=== PATIENT | female | born 1990 | race Caucasian/White ===

== ENCOUNTER 2016-07-29 05:28 | Inpatient (IN) | payer BC ==
[2016-07-29] MEDS ORDERED: Butorphanol 1 MG/ML SDV IVPUSH PRN (05:52)
[2016-07-29] MEDS ORDERED: Water For Irrigation,Sterile 1,000 ML Container IRR PRN (05:52)
[2016-07-29] MEDS ORDERED: Nalbuphine 10 MG/1 ML Vial IVPUSH PRN (05:52)
[2016-07-29] MEDS ORDERED: Carboprost Tromethamine 250 MCG/1 ML Amp IM PRN (05:52)
[2016-07-29] MEDS ORDERED: Sodium Chloride 0.9% 2.5 ML Syringe FLUSH PRN (05:52)
[2016-07-29] MEDS ORDERED: Methylergonovine 0.2 MG/1 ML Amp IM PRN ×2 (05:52→10:35)
[2016-07-29] MEDS ORDERED: Misoprostol 200 MCG Tab PO PRN (05:52)
[2016-07-29] MEDS ORDERED: Sodium Chloride 0.9% 10 ML Syringe FLUSH PRN (05:52)
[2016-07-29] MEDS ORDERED: Lidocaine 1% 50 ML MDV INJECT PRN (05:52)
[2016-07-29] MEDS ORDERED: Oxytocin/Lactated Ringers 30 UNIT/500 ML BAG IV SCH ×2 (06:00→08:45)
[2016-07-29] MEDS: Lactated Ringers 1,000 ML IV SCH ×2 (06:45→07:58)
[2016-07-29] MEDS ORDERED: Ropivacaine 0.2% 2 MG/ML 20 ML SDV ONE (07:06)
--- NOTE | 2016-07-29 07:45 | PCM.PREANE ---
Preanesthetic Assessment - Anesthesia/Transfusion/Family Hx Anesthesia History: Prior Anesthesia Without Reaction Family History of Anesthesia Reaction: No - Review of Systems Other: Reports: None - Physical Assessment Height: 5 ft 5 in Weight: 77.111 kg ASA Class: 2 Mental Status: Alert & Oriented x3 Airway Class: Mallampati = 1 Dentition: Reports: Normal Dentition Thyro-Mental Finger Breadths: 3 Mouth Opening Finger Breadths: 3 ROM/Head Extension: Full - Lab Values: Laboratory Last Values WBC 9.96 K/uL (4.0-11.0) 07/29/16 06:09 RBC 4.32 M/uL (4.30-5.90) 07/29/16 06:09 Hgb 12.0 g/dL (12.0-16.0) 07/29/16 06:09 Hct 35.7 % (36.0-46.0) L 07/29/16 06:09 MCV 82.6 fL (80.0-98.0) 07/29/16 06:09 MCH 27.8 pg (27.0-32.0) 07/29/16 06:09 MCHC 33.6 g/dL (31.0-37.0) 07/29/16 06:09 RDW Std Deviation 41.2 fl (28.0-62.0) 07/29/16 06:09 RDW Coeff of Linh 14 % (11.0-15.0) 07/29/16 06:09 Plt Count 170 K/uL (150-400) 07/29/16 06:09 MPV 11.50 fL (7.40-12.00) 07/29/16 06:09 Nucleated RBC % 0.0 /100WBC 07/29/16 06:09 Nucleated RBCs # 0 K/uL 07/29/16 06:09 Blood Type A NEGATIVE 07/29/16 06:09 Antibody Screen NEGATIVE 07/29/16 06:09 - Allergies Allergies/Adverse Reactions: Allergies Allergy/AdvReac Type Severity Reaction Status Date / Time No Known Allergies Allergy Verified 07/05/14 21:19 - Blood Blood Available: Yes Product(s) Available: PRBC - Acknowledgements Anesthesia Type Planned: Epidural Pt an Appropriate Candidate for the Planned Anesthesia: Yes Alternatives and Risks of Anesthesia Discussed w Pt/Guardian: Yes Pt/Guardian Understands and Agrees with Anesthesia Plan: Yes PreAnesthesia Questionnaire Respiratory History: Reports: Asthma Gastrointestinal History: Reports: GERD SPINNING DOFFER History: Reports: Other OB/BYN History: x 2; presently 27 weeks Psychiatric History: Reports: Anxiety - Past Surgical History HEENT Surgical History: Reports: Tonsillectomy, Other (See Below) Other HEENT Surgeries/Procedures: Eardrum repair. adenoidectomy Musculoskeletal Surgical History: Reports: Other (See Below) Other Musculoskeletal Surgeries/Procedures:: Cyst removal x2 on bilateral wrist - SUBSTANCE USE Smoking Status *Q: Never Smoker Recreational Drug Use History: No - HOME MEDS Home Medications: Home Meds Escitalopram [Lexapro] 10 mg PO DAILY #30 tablet 10/01/14 [Rx] - CURRENT (IN HOUSE) MEDS Current Meds: Current Medications Butorphanol Tartrate (Stadol) 1 mg IVPUSH Q1H PRN PRN Reason: Pain Carboprost Tromethamine (Hemabate Ds) 250 mcg IM ASDIRECTED PRN PRN Reason: Post Hemorrhage Lactated Ringer's (Ringers, Lactated) 1,000 mls @ 150 mls/hr IV ASDIRECTED MAXIMINO Lidocaine HCl (Xylocaine 1%) 50 ml INJECT .ONCE PRN PRN Reason: Laceration repair Methylergonovine Maleate (Methergine) 0.2 mg IM ASDIRECTED PRN PRN Reason: Post Hemorrhage Misoprostol (Cytotec) 200 mcg PO .ONCE PRN PRN Reason: Post Hemorrhage Nalbuphine HCl (Nubain) 10 mg IVPUSH Q1H PRN PRN Reason: Pain (severe 7-10) Stop: 07/29/16 07:53 Sodium Chloride (Saline Flush) 10 ml FLUSH ASDIRECTED PRN PRN Reason: Keep Vein Open Sodium Chloride (Saline Flush) 2.5 ml FLUSH ASDIRECTED PRN PRN Reason: Keep Vein Open Sterile Water (Sterile Water For Irrigation) 1,000 ml IRR ASDIRECTED PRN PRN Reason: delivery Discontinued Medications Oxytocin/Lactated Ringer's (Pitocin In Lr 30 Units/500 Ml) 30 unit in 500 mls @ 999 mls/hr IV TITRATE MAXIMINO; 999 MUNITS/MIN PRN Reason: Protocol Stop: 07/29/16 06:31 Ropivacaine/Fentanyl/NS (Fentanyl 2 Mcg-Ropiv 0.2%-Ns) Confirm Administered Dose 100 mls @ as directed .ROUTE .ST-MED ONE Stop: 07/29/16 07:07 Ropivacaine (Naropin 0.2%) Confirm Administered Dose 20 ml .ROUTE .ST-MED ONE Stop: 07/29/16 07:07
[2016-07-29] MEDS ORDERED: Lanolin 100% Cream 7 GM Tube TOP PRN (10:35)
[2016-07-29] MEDS ORDERED: Benzocaine/Menthol 20%-0.5% Spray 78 GM Cannister TOP PRN (10:35)
[2016-07-29] MEDS ORDERED: oxyCODONE 5 MG Tab PO PRN (10:35)
[2016-07-29] MEDS ORDERED: Witch Hazel Medicated Pads 40/Jar TOP PRN (10:35)
[2016-07-29] MEDS ORDERED: Acetaminophen 500 MG Tab PO PRN (10:35)
[2016-07-29] MEDS ORDERED: Bisacodyl 10 MG Supp RECTAL PRN (10:35)
[2016-07-29] MEDS ORDERED: Docusate Sodium 100 MG Cap PO PRN (10:35)
[2016-07-29] MEDS ORDERED: Escitalopram 10 MG Tab PO SCH (10:45)
[2016-07-29] MEDS: Escitalopram 10 MG Tab PO SCH (11:19)
[2016-07-29] MEDS: Ibuprofen 800 MG Tab PO PRN ×2 (11:19→16:41)
--- NOTE | 2016-07-29 12:36 | OR ---
SURGEON: Elizabeth Kenney M.D. DATE OF PROCEDURE: 07/29/2016 PREOPERATIVE DIAGNOSIS: A 38 and 6/7th week intrauterine , active spontaneous labor. POSTOPERATIVE DIAGNOSIS: A 38 and 6/7th week intrauterine , active spontaneous labor. PROCEDURE: Term spontaneous vaginal delivery with Pitocin augmentation. ANESTHESIA: Epidural. ESTIMATED BLOOD LOSS: Less than 200 mL. FINDINGS: Liveborn female, score 8 and 8. Weight is pending at the time of dictation. Placenta was spontaneous Schultze intact with 3 vessels. Upon inspection of the pelvis and perineum, there were no periurethral, vaginal sidewall, cervical, rectal, or perineal lacerations. EBL was again less than 200 mL. BRIEF HISTORY: This is a 26-year-old female. She is G5, P2-0-2-2. She presents at 38 and 6/7th weeks' gestation with regular contractions, initially 5 cm upon admission. Category 1 heart tones. She received an epidural for pain control. She had artificial rupture of membranes following the epidural with no further cervical cover marker the following hours. Therefore, Pitocin was initiated and she progressed to complete. DESCRIPTION OF PROCEDURE: With the patient in the dorsal lithotomy position, the patient pushed over a 10- minute time period to a 5+ station, at which time the head was delivered spontaneously and atraumatically over the perineum with support with subsequent delivery of the infant's shoulders and body without any difficulty. The was bulb suctioned by nose and mouth and the infant was handed to the mother in the presence of the nurse attending delivery. The infant is a liveborn female, score 8 and 8. After the cord had ceased to pulsate, it was doubly clamped and cut. Cord blood was collected for cord ABGs as well as routine cord blood sampling. Pitocin was initiated after delivery of the to assist with the delivery of the placenta, which was delivered spontaneously. Schultze intact with 3 vessels. Upon inspection of the pelvis and perineum, there were no periurethral, vaginal sidewall, cervical, rectal, or perineal lacerations. EBL was less than 200 mL. There were no known complications. Mother and baby remained in LDRP in good condition. SIMI / LIV /[id number]
--- NOTE | 2016-07-29 13:16 | PCM48HPAN ---
Post Anesthesia Note - EVALUATION WITHIN 48HRS OF ANESTHETIC Vital Signs in Normal Range: Yes Patient Participated in Evaluation: Yes Respiratory Function Stable: Yes Airway Patent: Yes Cardiovascular Function Stable: Yes Hydration Status Stable: Yes Pain Control Satisfactory: Yes Nausea and Vomiting Control Satisfactory: Yes Mental Status Recovered: Yes
[2016-07-30] MEDS: Ibuprofen 800 MG Tab PO PRN (06:32)
[2016-07-30] MEDS: Escitalopram 10 MG Tab PO SCH (09:16)
--- NOTE | 2016-07-30 09:42 | PCM.PNPP ---
- General Info Date of Service: 07/30/16 Functional Status: Reports: pain controlled, tolerating diet, ambulating, urinating (mood is doing well on Lexapro) - Review of Systems General: Reports: No Symptoms HEENT: Reports: no symptoms Pulmonary: Reports: no symptoms Cardiovascular: Reports: No Symptoms Gastrointestinal: Reports: No symptoms Genitourinary: Reports: no symptoms Musculoskeletal: Reports: no symptoms Skin: Reports: no symptoms Neurological: Reports: No Symptoms Psychiatric: Reports: no symptoms - Patient Data Vital Signs - most recent: Last Vital Signs Temp 36.8 C 07/30/16 08:20 Pulse 71 07/30/16 08:20 Resp 16 07/30/16 08:20 BP 109/73 07/30/16 08:20 Pulse Ox 98 07/30/16 08:20 Weight - most recent: 77.111 kg Lab Results - last 24 hrs: Laboratory Results - last 24 hr 07/29/16 07/30/16 Range/Units 11:52 06:05 Hgb 10.9 L (12.0-16.0) g/dL Hct 33.0 L (36.0-46.0) % Screen NEGATIVE RhIG Candidate? YES Rhogam Indicated YES, BABY RH POS H Med Orders - Current: Current Medications Acetaminophen (Tylenol Extra Strength) 1,000 mg PO Q4H PRN PRN Reason: Pain Last Admin: 07/29/16 19:41 Dose: 1,000 mg Benzocaine/Menthol (Dermoplast Pain Relief 20%-0.5% Hannibal) 78 gm TOP ASDIRECTED PRN PRN Reason: Perineal Comfort Measure Bisacodyl (Dulcolax) 10 mg RECTAL .ONCE PRN PRN Reason: Constipation Docusate Sodium (Colace) 100 mg PO BID PRN PRN Reason: Constipation Last Admin: 07/29/16 11:12 Dose: 100 mg Emollient Ointment (Lansinoh Hpa) 0 gm TOP ASDIRECTED PRN PRN Reason: Sore Nipples Escitalopram Oxalate (Lexapro) 20 mg PO DAILY MAXIMINO Last Admin: 07/30/16 09:16 Dose: 20 mg Ibuprofen (Motrin) 800 mg PO Q6H PRN PRN Reason: Pain Last Admin: 07/30/16 06:32 Dose: 800 mg Measles/Mumps/Rubella Vaccine Live (M-M-R Ii Vaccine) 0.5 ml SUBCUT .ONCE ONE Stop: 07/30/16 10:56 Methylergonovine Maleate (Methergine) 0.2 mg IM .ONCE PRN PRN Reason: Excessive Vaginal Bleeding Oxycodone HCl (Oxycodone) 5 mg PO Q2H PRN PRN Reason: Pain Last Admin: 07/29/16 22:47 Dose: 5 mg Witch Mckenzie (Tucks) 1 pad TOP ASDIRECTED PRN PRN Reason: comfort care Discontinued Medications Butorphanol Tartrate (Stadol) 1 mg IVPUSH Q1H PRN PRN Reason: Pain Carboprost Tromethamine (Hemabate Ds) 250 mcg IM ASDIRECTED PRN PRN Reason: Post Hemorrhage Escitalopram Oxalate (Lexapro) 10 mg PO DAILY MAXIMINO Lactated Ringer's (Ringers, Lactated) 1,000 mls @ 150 mls/hr IV ASDIRECTED MAXIMINO Last Infusion: 07/29/16 10:55 Dose: 0 mls/hr Oxytocin/Lactated Ringer's (Pitocin In Lr 30 Units/500 Ml) 30 unit in 500 mls @ 999 mls/hr IV TITRATE MAXIMINO; 999 MUNITS/MIN PRN Reason: Protocol Stop: 07/29/16 06:31 Ropivacaine/Fentanyl/NS (Fentanyl 2 Mcg-Ropiv 0.2%-Ns) Confirm Administered Dose 100 mls @ as directed .ROUTE .K-MED ONE Stop: 07/29/16 07:07 Oxytocin/Lactated Ringer's (Pitocin In Lr 30 Units/500 Ml) 30 unit in 500 mls @ 2 mls/hr IV TITRATE MAXIMINO; 2 MUNITS/MIN PRN Reason: Protocol Last Titration: 07/29/16 10:57 Dose: Infused Lidocaine HCl (Xylocaine 1%) 50 ml INJECT .ONCE PRN PRN Reason: Laceration repair Methylergonovine Maleate (Methergine) 0.2 mg IM ASDIRECTED PRN PRN Reason: Post Hemorrhage Misoprostol (Cytotec) 200 mcg PO .ONCE PRN PRN Reason: Post Hemorrhage Nalbuphine HCl (Nubain) 10 mg IVPUSH Q1H PRN PRN Reason: Pain (severe 7-10) Stop: 07/29/16 07:53 Ropivacaine (Naropin 0.2%) Confirm Administered Dose 20 ml .ROUTE .STK-MED ONE Stop: 07/29/16 07:07 Sodium Chloride (Saline Flush) 10 ml FLUSH ASDIRECTED PRN PRN Reason: Keep Vein Open Sodium Chloride (Saline Flush) 2.5 ml FLUSH ASDIRECTED PRN PRN Reason: Keep Vein Open Sterile Water (Sterile Water For Irrigation) 1,000 ml IRR ASDIRECTED PRN PRN Reason: delivery Last Admin: 07/29/16 10:55 Dose: 1,000 ml - Interaction Disposition, : [facility] to Nursery Feeding: Breastfed ; Nursed Well Support Person: - Recovery Exam Fundal Tone: Firm Fundal Level: 1 Fingerbreadths Below Umbilicus Fundal Placement: Midline Lochia Amount: Scant Lochia Color: Rubra/Red Perineum Description: Intact, Minimal Bruising/Swelling Episiotomy/Laceration: None Bladder Status: Voiding Urinary Elimination: Voided - Exam General: alert, oriented HEENT: Pupils equal Neck: supple Lungs: Normal respiratory effort Abdomen: soft, no tenderness, no distension Extremities: no edema Skin: warm, dry, intact Neurological: no new focal deficit Psy/Mental Status: alert, normal affect, normal mood - Problem List & Annotations (1) Vaginal delivery SNOMED Code(s): 484308568 Code(s): O80 - ENCOUNTER FOR FULL-TERM UNCOMPLICATED DELIVERY Status: Acute Current Visit: No - Problem List Review Problem List Initiated/Reviewed/Updated: Yes - My Orders Last 24 Hours: My Active Orders 07/29/16 10:35 Patient Status [ADT] Routine May Shower [RC] ASDIRECTED Up ad Emily [RC] ASDIRECTED Vital Signs [RC] PER UNIT ROUTINE Acetaminophen [Tylenol Extra Strength] 1,000 mg PO Q4H PRN Benzocaine/Menthol [Dermoplast Pain Relief 20%-0.5% Hannibal] 78 gm TOP ASDIRECTED PRN Bisacodyl [Dulcolax] 10 mg RECTAL .ONCE PRN Docusate Sodium [Colace] 100 mg PO BID PRN Ibuprofen [Motrin] 800 mg PO Q6H PRN Lanolin [Lansinoh HPA] See Dose Instructions TOP ASDIRECTED PRN Methylergonovine [Methergine] 0.2 mg IM .ONCE PRN Gabby Mckenzie [Tucks] 1 pad TOP ASDIRECTED PRN oxyCODONE 5 mg PO Q2H PRN Assess Lochia [WOMSER] Per Unit Routine Assess Uterine Involution [WOMSER] Per Unit Routine Perineal Care [OM.PC] Per Unit Routine Peripheral IV Discontinue [OM.PC] Routine Resuscitation Status Routine 07/29/16 10:45 Escitalopram [Lexapro] 20 mg PO DAILY 07/29/16 10:56 Vaccines to be Administered [RC] PER UNIT ROUTINE 07/29/16 11:52 SCREEN [BBK] Routine RH IMMUNE GLOBULIN [BBK] Routine RHIG WORKUP, [BBK] Routine 07/29/16 Lunch Regular Diet [DIET] 07/30/16 10:55 Measles, Mumps & Rubella [M-M-R II Vaccine] 0.5 ml SUBCUT .ONCE ONE - Assessment Assessment:: PPD#1 after , stable, minimal lochia, minimal pain, has some cramping after and would like a few oxycodone for htis. - Plan Plan:: Dismiss to home, follow up in 6 weeks discharge precautions given. She will need to get MMR at the health unit any time after two weeks from now, as she is receiving rhogam at this time.
[2016-07-30] MEDS ORDERED: Measles, Mumps & Rubella Vaccine 0.5 ML SDV SUBCUT ONE (10:55)
== END 2016-07-30 12:30 | disposition home or self-care (01) | DRG 560 ==
LOC: MW.OB 05:28 → UNDOADMOB 05:28 → OBSVTOIN 10:20 → MERGE 10:20 → MW.OB 10:20
PROVIDERS: ADMIT Obstetrics & Gynecology; ATTEND Obstetrics & Gynecology
PROC: 10E0XZZ Delivery of Products of Conception, External Approach (ICD-10-PCS; principal; 2016-07-29)
DX: O99.344 Other mental disorders complicating childbirth (principal); F41.8 Other specified anxiety disorders; Z3A.38 38 weeks gestation of pregnancy; Z37.0 Single live birth
CPT/HCPCS: 01967; 36415; 59025; 85014; 85018; 85027; 85460; 86850; 86900; 86901; A9270-GY; J2790; J2795; J7120

== ENCOUNTER 2019-02-07 11:07 | Emergency (ER) | payer BC ==
--- NOTE | 2019-02-07 11:36 | EDM.PDOC ---
ED HPI GENERAL MEDICAL PROBLEM - General Chief Complaint: Respiratory Problem Stated Complaint: COUGH Time Seen by Provider: 02/07/19 11:33 Source of Information: Reports: Patient History Limitations: Reports: No Limitations - History of Present Illness INITIAL COMMENTS - FREE TEXT/NARRATIVE: Patient is a 29-year-old female who is complaining of having flulike symptoms which started approximately 4 days ago. Patient was having body aches and fever and chills. She is complaining of a cough which is nonproductive and is getting worse. She has no dyspnea with exertion. She is complaining of both fever and chills. She is not nauseous has had no vomiting or diarrhea. She denies any dysuria or hematuria. Patient has not been taking any Tylenol or Motrin for symptoms. She denies having any headache but is complaining of having a sore throat. Duration: Day(s): (4) Quality: Reports: Ache Severity: Moderate Improves with: Reports: None Worsens with: Reports: None Associated Symptoms: Reports: Cough, Fever/Chills. Denies: cough w sputum, Headaches, Nausea/Vomiting, Rash, Shortness of Breath generalized Pain Score (Numeric/FACES): 7 - Related Data Allergies Allergy/AdvReac Type Severity Reaction Status Date / Time No Known Allergies Allergy Verified 02/07/19 11:21 Home Meds: Home Meds ARIPiprazole [Aripiprazole] 1 tab PO DAILY 02/07/19 [History] Past Medical History Respiratory History: Reports: Asthma Gastrointestinal History: Reports: GERD COTTON PULLER History: Reports: Other COTTON PULLER History: x 2; Psychiatric History: Reports: Anxiety - Infectious Disease History Infectious Disease History: Reports: None - Past Surgical History HEENT Surgical History: Reports: Adenoidectomy, Naso-Sinus Surgery, Tonsillectomy, Other (See Below) Other HEENT Surgeries/Procedures: Ear surgeries in the past Musculoskeletal Surgical History: Reports: Other (See Below) Other Musculoskeletal Surgeries/Procedures:: Cyst removal x2 on bilateral wrist Social & Family History - Family History Family Medical History: Noncontributory Cardiac: Reports: Prior Cardiac Arrest OBGYN: Reports: Endocrine/Metabolic: Reports: Other (See Below) Other Endocrine/Metabolic Family History: Thyroid disease Oncologic: Reports: Lung - Tobacco Use Smoking Status *Q: Never Smoker - Caffeine Use Caffeine Use: Reports: None - Recreational Drug Use Recreational Drug Use: No ED ROS GENERAL - Review of Systems Review Of Systems: Comprehensive ROS is negative, except as noted in HPI. ED EXAM, GENERAL - Physical Exam Exam: See Below Free Text/Narrative:: Exam: See Below Exam Limited By: No Limitations Head: Atraumatic Neck: Normal Inspection. No: Carotid Bruit, Lymphadenopathy (R) Respiratory/Chest: No Respiratory Distress, Lungs Clear, Normal Breath Sounds, No Accessory Muscle Use. No: Chest Non-Tender Cardiovascular: Normal Peripheral Pulses, Regular Rate, Rhythm, No Edema, No JVD GI/Abdominal: Normal Bowel Sounds, Tender. No: Non-Tender, Splenomegaly Back Exam: Normal Inspection. No: CVA Tenderness (R) Extremities: Normal Inspection. No: No Pedal Edema Neurological: Alert, Oriented, Normal Cognition Psychiatric: Normal Affect Skin Exam: Warm Lymphatic: No Adenopathy Course - Vital Signs Last Recorded V/S: Last Vital Signs Temp 36.8 C 02/07/19 11:18 Pulse 104 H 02/07/19 11:18 Resp 20 02/07/19 11:18 BP 123/72 02/07/19 11:18 Pulse Ox 98 02/07/19 11:18 - Orders/Labs/Meds Meds: Medications Discontinued Medications Generic Name Dose Route Start Last Admin Trade Name Jessy PRN Reason Stop Dose Admin Ibuprofen 600 mg 02/07/19 11:41 02/07/19 11:47 Motrin PO 02/07/19 11:42 600 mg ONETIME ONE Administration Ibuprofen Confirm 02/07/19 11:49 Motrin Administered 02/07/19 11:50 Dose 600 mg .ROUTE .STK-MED ONE - Re-Assessments/Exams Free Text/Narrative Re-Assessment/Exam: 02/07/19 12:23 Patient is positive for influenza B. I will give her a prescription for some Robitussin-AC secondary to her cough. Recommended she increase her fluids and take Tylenol/ibuprofen as needed. She may return to ER if her symptoms worsen. Departure - Departure Time of Disposition: 12:26 Disposition: Home, Self-Care 01 Condition: Good Clinical Impression: Influenza B, Influenza - Discharge Information Instructions: Influenza, Adult Referrals: PCP,None [Primary Care Provider] - Forms: ED Department Discharge Additional Instructions: Increase rest and fluids. Ibuprofen and Tylenol as needed. Robitussin-AC if needed. Return to ER if worse. Follow-up with PCP if not improving. The following information is given to patients seen in the emergency department who are being discharged to home. This information is to outline your options for follow-up care. We provide all patients seen in our emergency department with a follow-up referral. The need for follow-up, as well as the timing and circumstances, are variable depending upon the specifics of your emergency department visit. If you don't have a primary care physician on staff, we will provide you with a referral. We always advise you to contact your personal physician following an emergency department visit to inform them of the circumstance of the visit and for follow-up with them and/or the need for any referrals to a consulting specialist. The emergency department will also refer you to a specialist when appropriate. This referral assures that you have the opportunity for follow-up care with a specialist. All of these measure are taken in an effort to provide you with optimal care, which includes your follow-up. Under all circumstances we always encourage you to contact your private physician who remains a resource for coordinating your care. When calling for follow-up care, please make the office aware that this follow-up is from your recent emergency room visit. If for any reason you are refused follow-up, please contact the [facility] Emergency Department at and asked to speak to the emergency department charge nurse. Sepsis Event Note - Evaluation Sepsis Screening Result: No Definite Risk - Focused Exam Vital Signs: Vital Signs Temp Pulse Resp BP Pulse Ox 02/07/19 11:18 36.8 C 104 H 20 123/72 98 Date Exam was Performed: 02/07/19 Time Exam was Performed: 12:23
[2019-02-07] MEDS ORDERED: Ibuprofen 600 MG Tab PO ONE (11:41)
[2019-02-07] MEDS ORDERED: Ibuprofen 600 MG Tab ONE (11:49)
== END 2019-02-07 12:38 | disposition home or self-care (01) ==
LOC: MW.ED 11:07
DX: J10.1 Influenza due to other identified influenza virus with other respiratory manifestations (principal); F41.9 Anxiety disorder, unspecified; Z79.899 Other long term (current) drug therapy
CPT/HCPCS: 87804; 99283; A9270; 99282

== ENCOUNTER 2021-02-07 15:56 | Emergency (ER) | payer BC ==
[2021-02-07 19:28] LABS: BLOOD UREA NITROGEN,BUN 8 mg/dL (7.0-18.0); CARBON DIOXIDE,CO2 24.9 mmol/L (21.0-32.0); CHLORIDE,CL 104 mmol/L (98-107); GLUCOSE RANDOM 87 mg/dL (74-106); LIPASE 114 U/L (73-393); POTASSIUM,K 3.4 mmol/L (3.5-5.1); SODIUM,NA 141 mmol/L (136-145)
--- NOTE | 2021-02-07 21:11 | EDM.PDOC ---
ED HPI GENERAL MEDICAL PROBLEM - General Chief Complaint: Gastrointestinal Problem Stated Complaint: BLOOD IN STOOL Time Seen by Provider: 02/07/21 18:24 Source of Information: Reports: Patient History Limitations: Reports: No Limitations - History of Present Illness INITIAL COMMENTS - FREE TEXT/NARRATIVE: HISTORY AND PHYSICAL: History of present illness: Patient is a 31-year-old female who presents emergency room today with concern of a few episodes of bright red blood in her stool today. Patient states that she has never had this occur before and she has had 3 bowel movements this afternoon, the most recent being at 3 PM and states that there was bright red blood in her stool. Patient states that the toilet bowl was also filled with blood and she was concerned because she felt like this was a large amount. She states that she is not having any associated rectal pain or abdominal pain denies any other health history. Patient denies fever, chills, chest pain, shortness of breath, or cough. Denies headache, neck stiff ness, change in vision, syncope, or near syncope. Denies nausea, vomiting, abdominal pain, diarrhea, constipation, or dysuria. Has not noted any blood in urine. Patient has been eating and drinking appropriately. Review of systems: As per history of present illness and below otherwise all systems reviewed and negative. Past medical history: As per history of present illness and as reviewed below otherwise noncontributory. Surgical history: As per history of present illness and as reviewed below otherwise noncontributory. Social history: See social history for further information Family history: As per history of present illness and as reviewed below otherwise noncontributory. Physical exam: General: Patient is alert, oriented, and in no acute distress. Patient sitting comfortably on exam table. Vitals stable and reviewed by me. HEENT: Atraumatic, normocephalic, pupils equal and reactive bilaterally, negative for conjunctival pallor or scleral icterus, mucous membranes moist, throat clear, neck supple, nontender, trachea midline. No drooling or trismus noted. No meningeal signs. No hot potato voice noted. Lungs: Clear to auscultation, breath sounds equal bilaterally, chest nontender. Heart: S1S2, regular rate and rhythm without overt murmur Abdomen: Soft, nondistended, nontender. Negative for masses or hepatos plenomegaly. Negative for costovertebral tenderness. Pelvis: Stable nontender. Genitourinary: Deferred. Rectal: Rectal exam performed by PA kenan Whitten and observed and supervised directly by me. Rectal tone intact. No cruz blood / melena. Hemoccult negative. No obvious fissures, masses, lesions, or hemorrhoids noted. Skin: Intact, warm, dry. No lesions or rashes noted. Extremities: Atraumatic, negative for cords or calf pain. Neurovascular unremarkable. Neuro: Awake, alert, oriented. Cranial nerves II through XII unremarkable. Cerebellum unremarkable. Motor and sensory unremarkable throughout. Exam nonfocal. Medical Decision Making: CBC mild derangements unremarkable. Specifically hemoglobin and hematocrit within normal limits. CMP does show mild poke kalemia with potassium at 3.4. Urinalysis clear. hCG negative. Repeat H&H remained stable. Guaiac negative. Strict return precautions thoroughly discussed with patient. Discussed importance for follow-up with her primary care provider and for colonoscopy consideration. Voices understanding and is agreeable to plan of care. Denies any further questions or concerns at this time. Diagnostics: CBC, CMP, lipase, urinalysis, hCG, repeat H&H Therapeutics: None Prescription: None Impression: History of blood in stool Plan: 1. Follow-up with your primary care provider for further colonoscopy consideration as discussed. Return to the ED as needed and as discussed. Definitive disposition and diagnosis as appropriate pending reevaluation and review of above. 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; Psychiatric History: Reports: Anxiety - Infectious Disease History Infectious Disease History: Reports: None - Past Surgical History HEENT Surgical History: Reports: Adenoidectomy, Naso-Sinus Surgery, Tonsillectom y, Other (See Below) Other HEENT Surgeries/Procedures: Ear surgeries in the past Musculoskeletal Surgical History: Reports: Other (See Below) Other Musculoskeletal Surgeries/Procedures:: Cyst removal x2 on bilateral wrist Social & Family History - Family History Family Medical History: No Pertinent Family History Cardiac: Reports: Prior Cardiac Arrest OBGYN: Reports: Endocrine/Metabolic: Reports: Other (See Below) Other Endocrine/Metabolic Family History: Thyroid disease Oncologic: Reports: Lung - Caffeine Use Caffeine Use: Reports: Energy Drinks - Recreational Drug Use Recreational Drug Use: No ED ROS GENERAL - Review of Systems Review Of Systems: Comprehensive ROS is negative, except as noted in HPI. ED EXAM, GENERAL - Physical Exam Exam: See Below (See dictation) Course - Vital Signs Last Recorded V/S: Last Vital Signs Temp 98.2 F 02/07/21 21:20 Pulse 67 02/07/21 21:20 Resp 18 02/07/21 21:20 BP 120/67 02/07/21 21:20 Pulse Ox 98 02/07/21 21:20 - Orders/Labs/Meds Labs: Laboratory Tests 02/07/21 02/07/21 02/07/21 Range/Units 16:21 16:21 18:50 WBC 9.92 (4.0-11.0) K/uL RBC 4.57 (4.30-5.90) M/uL Hgb 13.0 (12.0-16.0) g/dL Hct 37.2 (36.0-46.0) % MCV 81.4 (80.0-98.0) fL MCH 28.4 (27.0-32.0) pg MCHC 34.9 (31.0-37.0) g/dL RDW Std Deviation 39.2 (28.0-62.0) fl RDW Coeff of Linh 13 (11.0-15.0) % Plt Count 250 (150-400) K/uL MPV 10.70 (7.40-12.00) fL Neut % (Auto) 56.8 (48.0-80.0) % Lymph % (Auto) 36.3 (16.0-40.0) % Blair % (Auto) 4.1 (0.0-15.0) % Eos % (Auto) 2.7 (0.0-7.0) % Baso % (Auto) 0.1 (0.0-1.5) % Neut # (Auto) 5.6 (1.4-5.7) K/uL Lymph # (Auto) 3.6 H (0.6-2.4) K/uL Blair # (Auto) 0.4 (0.0-0.8) K/uL Eos # (Auto) 0.3 (0.0-0.7) K/uL Baso # (Auto) 0.0 (0.0-0.1) K/uL Nucleated RBC % 0.0 /100WBC Nucleated RBCs # 0 K/uL Sodium (136-145) mmol/L Potassium (3.5-5.1) mmol/L Chloride (98-107) mmol/L Carbon Dioxide (21.0-32.0) mmol/L BUN (7.0-18.0) mg/dL Creatinine (0.6-1.0) mg/dL Est Cr Clr Drug Dosing mL/min Estimated GFR (MDRD) ml/min Glucose (74-106) mg/dL Calcium (8.5-10.1) mg/dL Total Bilirubin (0.2-1.0) mg/dL AST (15-37) IU/L ALT (14-63) IU/L Alkaline Phosphatase (46-116) U/L Total Protein (6.4-8.2) g/dL Albumin (3.4-5.0) g/dL Globulin (2.6-4.0) g/dL Albumin/Globulin Ratio (0.9-1.6) Lipase (73-393) U/L Urine Color YELLOW Urine Appearance CLEAR Urine pH 8.0 (5.0-8.0) Ur Specific Chemult 1.020 (1.001-1.035) Urine Protein NEGATIVE (NEGATIVE) mg/dL Urine Glucose (UA) NEGATIVE (NEGATIVE) mg/dL Urine Ketones NEGATIVE (NEGATIVE) mg/dL Urine Occult Blood NEGATIVE (NEGATIVE) Urine Nitrite NEGATIVE (NEGATIVE) Urine Bilirubin NEGATIVE (NEGATIVE) Urine Urobilinogen 0.2 (<2.0) EU/dL Ur Leukocyte Esterase NEGATIVE (NEGATIVE) Urine HCG, Qual NEGATIVE (NEGATIVE) 02/07/21 02/07/21 Range/Units 18:50 20:17 WBC (4.0-11.0) K/uL RBC (4.30-5.90) M/uL Hgb 12.6 (12.0-16.0) g/dL Hct 36.2 (36.0-46.0) % MCV (80.0-98.0) fL MCH (27.0-32.0) pg MCHC (31.0-37.0) g/dL RDW Std Deviation (28.0-62.0) fl RDW Coeff of Linh (11.0-15.0) % Plt Count (150-400) K/uL MPV (7.40-12.00) fL Neut % (Auto) (48.0-80.0) % Lymph % (Auto) (16.0-40.0) % Blair % (Auto) (0.0-15.0) % Eos % (Auto) (0.0-7.0) % Baso % (Auto) (0.0-1.5) % Neut # (Auto) (1.4-5.7) K/uL Lymph # (Auto) (0.6-2.4) K/uL Blair # (Auto) (0.0-0.8) K/uL Eos # (Auto) (0.0-0.7) K/uL Baso # (Auto) (0.0-0.1) K/uL Nucleated RBC % /100WBC Nucleated RBCs # K/uL Sodium 141 (136-145) mmol/L Potassium 3.4 L (3.5-5.1) mmol/L Chloride 104 (98-107) mmol/L Carbon Dioxide 24.9 (21.0-32.0) mmol/L BUN 8 (7.0-18.0) mg/dL Creatinine 0.8 (0.6-1.0) mg/dL Est Cr Clr Drug Dosing 95.38 mL/min Estimated GFR (MDRD) > 60.0 ml/min Glucose 87 (74-106) mg/dL Calcium 8.8 (8.5-10.1) mg/dL Total Bilirubin 0.3 (0.2-1.0) mg/dL AST 19 (15-37) IU/L ALT 28 (14-63) IU/L Alkaline Phosphatase 72 (46-116) U/L Total Protein 6.9 (6.4-8.2) g/dL Albumin 3.9 (3.4-5.0) g/dL Globulin 3.0 (2.6-4.0) g/dL Albumin/Globulin Ratio 1.3 (0.9-1.6) Lipase 114 (73-393) U/L Urine Color Urine Appearance Urine pH (5.0-8.0) Ur Specific Chemult (1.001-1.035) Urine Protein (NEGATIVE) mg/dL Urine Glucose (UA) (NEGATIVE) mg/dL Urine Ketones (NEGATIVE) mg/dL Urine Occult Blood (NEGATIVE) Urine Nitrite (NEGATIVE) Urine Bilirubin (NEGATIVE) Urine Urobilinogen (<2.0) EU/dL Ur Leukocyte Esterase (NEGATIVE) Urine HCG, Qual (NEGATIVE) Departure - Departure Time of Disposition: 21:10 Disposition: Home, Self-Care 01 Clinical Impression: Blood in stool - Discharge Information Instructions: Medical Screening Exam Referrals: PCP,None [Primary Care Provider] - Forms: ED Department Discharge Additional Instructions: The following information is given to patients seen in the emergency department who are being discharged to home. This information is to outline your options for follow-up care. We provide all patients seen in our emergency department with a follow-up referral. The need for follow-up, as well as the timing and circumstances, are variable depending upon the specifics of your emergency department visit. If you don't have a primary care physician on staff, we will provide you with a referral. We always advise you to contact your personal physician following an emergency department visit to inform them of the circumstance of the visit and for follow-up with them and/or the need for any referrals to a consulting specialist. The emergency department will also refer you to a specialist when appropriate. This referral assures that you have the opportunity for follow-up care with a specialist. All of these measure are taken in an effort to provide you with optimal care, which includes your follow-up. Under all circumstances we always encourage you to contact your private physician who remains a resource for coordinating your care. When calling for follow-up care, please make the office aware that this follow-up is from your recent emergency room visit. If for any reason you are refused follow-up, please contact the Emergency Department at and asked to speak to the emergency department charge nurse. Primary Care [address] [place] [address] [id number] [facility] [place] [address] [place] [address] [place] [id number] 1. Follow-up with your primary care provider for further colonoscopy consideration as discussed. Return to the ED as needed and as discussed. Sepsis Event Note (ED) - Evaluation Sepsis Screening Result: No Definite Risk - Focused Exam Vital Signs: Vital Signs Temp Pulse Resp BP Pulse Ox 02/07/21 21:20 98.2 F 67 18 120/67 98 02/07/21 20:34 79 114/48 L 100 02/07/21 20:09 79 81/54 L 98 02/07/21 18:43 97.8 F 95 18 85/44 L 100 02/07/21 16:06 97.0 F 74 16 110/55 L 98
== END 2021-02-07 21:21 | disposition home or self-care (01) ==
LOC: MW.ED 15:56
DX: K92.1 Melena (principal); K21.9 Gastro-esophageal reflux disease without esophagitis; Z79.899 Other long term (current) drug therapy
CPT/HCPCS: 36415; 80053; 81003; 81025; 83690; 85014; 85018; 85025; 99284

== ENCOUNTER 2022-05-15 22:37 | Emergency (ER) | payer BC ==
[2022-05-16] MEDS ORDERED: Ondansetron 4 MG/2 ML SDV IVPUSH ONE (01:44)
[2022-05-16] MEDS ORDERED: Lactated Ringers 1,000 ML IV SCH (01:45)
[2022-05-16] MEDS ORDERED: diphenhydrAMINE 50 MG/ML SDV IVPUSH ONE (02:26)
[2022-05-16] MEDS ORDERED: Prochlorperazine 10 MG/2 ML SDV IVPUSH ONE (02:26)
[2022-05-16 03:02] LABS: CARBON DIOXIDE,CO2 28.6 mmol/L (21.0-32.0); POTASSIUM,K 3.3 mmol/L (3.5-5.1)
[2022-05-16] MEDS ORDERED: Iopamidol 755 MG/ML 200 ML Multipack Bottle IVPUSH STA (05:59)
[2022-05-16] MEDS ORDERED: Iopamidol 755 MG/ML 500 ML Multipack Bottle IVPUSH STA (06:01)
[2022-05-16] MEDS ORDERED: Potassium Chloride 20 MEQ Tab.ER PO ONE (09:15)
[2022-05-16] MEDS ORDERED: Aspirin 81 MG Tab.Chew PO ONE (09:31)
== END 2022-05-16 09:41 | disposition home or self-care (01) ==
LOC: MW.ED 22:37
DX: R20.2 Paresthesia of skin (principal); E87.6 Hypokalemia
CPT/HCPCS: 36415; 70450; 70450-26; 70496; 70496-26; 70498; 70498-26; 70551; 70551-26; 80053; 80307; 81003; 83735; 84703; 85025; 96361; 96374; 96375; 99284-25; 99285; A9270-GY; J0780; J1200; J2405; J7120; Q9967

== ENCOUNTER 2024-06-12 20:04 | Emergency (ER) | payer OTHER, BC ==
[2024-06-13] MEDS: Ibuprofen 600 MG Tab PO ONE (00:44)
== END 2024-06-13 00:47 | disposition home or self-care (01) ==
LOC: MW.ED 20:04
DX: S16.1XXA Strain of muscle, fascia and tendon at neck level, initial encounter (principal); S09.90XA Unspecified injury of head, initial encounter; S00.502A Unspecified superficial injury of oral cavity, initial encounter; V49.40XA Driver injured in collision with unspecified motor vehicles in traffic accident, initial encounter; Y92.410 Unspecified street and highway as the place of occurrence of the external cause
CPT/HCPCS: 70450; 72125; 99284; A9270